=== PATIENT | female | born 1975 | race Two or more races ===

== ENCOUNTER 2016-06-07 14:56 | Emergency (ER) | payer MEDICAID ==
[~2016-06-07] VITALS: Ht 154.9 cm; Wt 72.6 kg
[2016-06-07 15:29] VITALS: BP 120/77
== END 2016-06-07 16:20 | disposition home or self-care (01) ==
LOC: ER 14:58
DX: R76.11 Nonspecific reaction to tuberculin skin test without active tuberculosis (principal); Z76.1 Encounter for health supervision and care of foundling
CPT/HCPCS: 71020